=== PATIENT | male | born 1990 | race Caucasian/White ===

== ENCOUNTER 2016-10-03 20:42 | Emergency (ER) ==
[2016-10-03 20:49] VITALS: BP 154/93; TEMP 97.2; BMI 21.1
[2016-10-03] MEDS ORDERED: AUGMENTIN 500-125 MG TAB PO STA (21:27)
--- NOTE | 2016-10-03 21:28 | ED.PDOC ---
General ED Provider: Dr. CORETTA NESS Chief Complaint: Tooth Problem Stated Complaint: Right upper gum hurting and swollen, wisdom tooth. have f/u with Dr Armstrong Time Seen by Physician: 21:29 Mode of Arrival: Walk-In Information Source: Patient Primary Care Provider: CORETTA NESS[facility] Nursing and Triage Documentation Reviewed and Agree: Yes EENT Complaint Exam - Dental/Oral Complaint/Exam Mechanism of Injury: No known trauma Symptoms Are: Still present Timing: Constant Initial Severity: Moderate Current Severity: Moderate Character: Reports: Aching, Throbbing Aggravating: Reports: Chewing Alleviating: Reports: None Associated Signs and Symptoms: Reports: Swelling. Denies: Discharge, Fever, Foul odor, Foul taste in mouth Cardiac Risk Factors: Reports: None Dental/Oral Surgical History: Reports: None Tooth Findings: Present: Percussion tenderness, Cellulitis Cervical Lymphadenopathy Present: No Facial Swelling Present: No Bleeding Present: No Septal Hematoma: No Foreign Body Present: No Dysphagia Present: No Drooling Present: No Asymmetrical Tonsillar Swelling Present: No Uvula Midline: No Elke-tonsillar Fluctuence: No Trismus Present: No Palatal Petechiae Present: No Scarlatinaform Rash Present: No Differential Diagnoses: Gingivitis Review of Systems - Review Of Systems Constitutional: Reports: No symptoms Eyes: Reports: No symptoms Ears, Nose, Mouth, Throat: Reports: Mouth pain Respiratory: Reports: No symptoms Cardiac: Reports: No symptoms GI: Reports: No symptoms : Reports: No symptoms Musculoskeletal: Reports: No symptoms Skin: Reports: No symptoms Neurological: Reports: No symptoms Endocrine: Reports: No symptoms Hematologic/Lymphatic: Reports: No symptoms All Other Systems: Reviewed and Negative Past Medical History - Past Medical History Previously Healthy: Yes Endocrine: Reports: None Cardiovascular: Reports: None Respiratory: Reports: None Hematological: Reports: None Gastrointestinal: Reports: PUD (thewy said it would go away) Genitourinary: Reports: None Neuro/Psych: Reports: None Musculoskeletal: Reports: None Cancer: Reports: None - Surgical History General Surgical History: Reports: None - Family History Family History: Reports: Unknown - Social History Smoking Status: Current every day smoker, Light tobacco smoker Smoking Cessation Counseling Time: > 3 min - 10 min Hx Substance Use: No Alcohol Screening: None - Immunizations Tetanus Shot up to Date: No Physical Exam - Physical Exam Appearance: Well-appearing Pain Distress: Moderate Eyes: GARRET, EOMI, Conjunctiva clear ENT: Ears normal, Nose normal, Oropharynx normal Respiratory: Airway patent, Breath sounds clear, Breath sounds equal, Respirations nonlabored Cardiovascular: RRR, Pulses normal, No rub, No murmur GI/: Soft, Nontender, No masses, Bowel sounds normal, No Organomegaly Musculoskeletal: Normal strength, ROM intact, No edema, No calf tenderness Skin: Warm, Dry, Normal color Neurological: Sensation intact, Motor intact, Reflexes intact, Cranial nerves intact, Alert, Oriented Psychiatric: Affect appropriate, Mood appropriate Critical Care Note - Critical Care Note Total Time (mins): 0 Course - Course Orders, Labs, Meds: Orders Category Date Time Status Amoxicillin/Potassium Clav [Augmentin 500-125 mg Tab] MEDS 10/03/16 21:27 Stat 1 tab PO ONCE STA Vital Signs: Temp Pulse Resp BP Pulse Ox 10/03/16 20:42 97.2 F L 62 18 154/93 H 98 Departure - Departure Time of Disposition: 21:33 Disposition: HOME SELF-CARE Discharge Problem: Gingivitis Instructions: Toothache (ED) Condition: Stable Pt referred to PMD for follow-up: Yes Additional Instructions: HAS F/U WITH dENTIST IN am Prescriptions: Amoxicillin/Potassium Clav [Augmentin 500-125 mg Tab] 1 tab PO Q12HR #20 tablet Hydrocodone/Acetaminophen [[place] 5-325 Tablet] 1 tab PO TID PRN #12 tablet PRN Reason: PAIN Allergies/Adverse Reactions: Allergies tramadol HCl [From Ultram] Adverse Reaction (Verified 10/03/16 20:47) HEART RACES, NAUSEA venom-honey bee [bee venom (honey bee)] Adverse Reaction (Verified 10/03/16 20: 47) Home Medications: Ambulatory Orders Amoxicillin/Potassium Clav [Augmentin 500-125 mg Tab] 1 tab PO Q12HR #20 tablet 10/03/16 Hydrocodone/Acetaminophen [[place] 5-325 Tablet] 1 tab PO TID PRN #12 tablet 10/03 Disposition Discussed With: Patient
== END 2016-10-03 21:35 | disposition home or self-care (01) ==
LOC: ED 20:42
DX: K05.10 Chronic gingivitis, plaque induced (principal); K08.89 Other specified disorders of teeth and supporting structures; F17.210 Nicotine dependence, cigarettes, uncomplicated
CPT/HCPCS: 99282

== ENCOUNTER 2016-12-29 17:54 | Emergency (ER) ==
[2016-12-29 18:03] VITALS: BP 145/87; TEMP 99.1; BMI 21.5
--- NOTE | 2016-12-29 18:20 | ED.PDOC ---
General ED Provider: Dr. DESTINY WHITE JR Chief Complaint: Tooth Problem Stated Complaint: RDpatient has appointment with dr. baxter to have tooth pulled. states it broke off 2 weeks ago[End]2 WEEKS 99.1 70 16 97% 145/87 9/10 LEFT LOWER THIRD MOLAR TENDER FACIAL TENDERNESS NO FEVER Time Seen by Physician: 18:20 Mode of Arrival: Walk-In Information Source: Patient Exam Limitations: No limitations [facility] and Triage Documentation Reviewed and Agree: No EENT Complaint Exam - Dental/Oral Complaint/Exam Mechanism of Injury: No known trauma Onset/Duration: 2WEEKS Symptoms Are: Still present Timing: Intermittent Initial Severity: Moderate Current Severity: Moderate Character: Reports: Aching, Throbbing Aggravating: Reports: Heat, Cold, Chewing, Exertion Alleviating: Reports: OTC Meds (salt water,tylenol,ibuprofen) Associated Signs and Symptoms: Reports: Swelling Related History: Reports: Similar episode, Previous tooth problem Tooth Findings: Present: Percussion tenderness (LEFT THIRD MOLARWITH VIDIBLE CAVITY TENDER FACE OVER UPPER AND LOWER MOLARS NO ERYTHEMA) Review of Systems - Review Of Systems Constitutional: Reports: Malaise Eyes: Reports: No symptoms Ears, Nose, Mouth, Throat: Reports: Mouth pain Respiratory: Reports: No symptoms Cardiac: Reports: No symptoms GI: Reports: No symptoms : Reports: No symptoms Musculoskeletal: Reports: No symptoms Skin: Reports: No symptoms Neurological: Reports: No symptoms Endocrine: Reports: No symptoms Hematologic/Lymphatic: Reports: No symptoms All Other Systems: Other Past Medical History - Past Medical History Previously Healthy: Yes Endocrine: Reports: None Cardiovascular: Reports: None Respiratory: Reports: None Hematological: Reports: None Gastrointestinal: Reports: PUD (thewy said it would go away) Genitourinary: Reports: None Neuro/Psych: Reports: None Musculoskeletal: Reports: None Cancer: Reports: None - Surgical History General Surgical History: Reports: None - Family History Family History: Reports: Unknown - Social History Smoking Status: Current every day smoker, Light tobacco smoker Hx Substance Use: No Alcohol Screening: None Physical Exam - Physical Exam Appearance: Well-appearing, Thin Pain Distress: Moderate Eyes: GARRET, EOMI, Conjunctiva clear ENT: Ears normal, Nose normal, TMs Occluded Neck: Supple Respiratory: Airway patent, Breath sounds clear, Breath sounds equal, Respirations nonlabored Cardiovascular: RRR, Pulses normal, No rub, No murmur GI/: Soft, Nontender, No masses, Bowel sounds normal, No Organomegaly Musculoskeletal: Normal strength, ROM intact, No edema, No calf tenderness Skin: Warm, Dry, Normal color Neurological: Sensation intact, Motor intact, Reflexes intact, Cranial nerves intact, Alert, Oriented Critical Care Note - Critical Care Note Total Time (mins): 0 Course - Course Vital Signs: Temp Pulse Resp BP Pulse Ox 12/29/16 17:54 99.1 F 70 16 145/87 H 97 Departure - Departure Time of Disposition: 18:26 Disposition: HOME SELF-CARE Discharge Problem: Toothache Instructions: Dental Caries (ED), Dental Abscess (ED) Condition: Good Pt referred to PMD for follow-up: Yes (DENTIST) Additional Instructions: FOLLOW UP WITH DENTIST SOON POSSIBLE BRUSH AND FLOSS TEETH TWICE A DAY ANTIBIOTIC UNTIL GONE Prescriptions: Hydrocodone Bit/Acetaminophen [[place] 5-325] 1 - 2 tab PO Q6HR PRN #12 tablet PRN Reason: pain Naproxen [Naprosyn] 500 mg PO Q12HR PRN #30 tablet PRN Reason: PAIN Penicillin V Potassium 500 mg PO QID #28 tablet Allergies/Adverse Reactions: Allergies tramadol HCl [From [facility]] Adverse Reaction (Verified 12/29/16 17:56) HEART RACES, NAUSEA venom-honey bee [bee venom (honey bee)] Adverse Reaction (Verified 12/29/16 17: 56) Home Medications: Ambulatory Orders Hydrocodone Bit/Acetaminophen [[place] 5-325] 1 - 2 tab PO Q6HR PRN #12 tablet Naproxen [Naprosyn] 500 mg PO Q12HR PRN #30 tablet 12/29/16 Penicillin V Potassium 500 mg PO QID #28 tablet 12/29/16
== END 2016-12-29 18:34 | disposition home or self-care (01) ==
LOC: ED 17:54
DX: K08.89 Other specified disorders of teeth and supporting structures (principal); F17.210 Nicotine dependence, cigarettes, uncomplicated
CPT/HCPCS: 99282

== ENCOUNTER 2022-02-23 20:42 | Observation (INO) ==
--- NOTE | 2022-02-23 20:49 | ED.PDOC ---
General ED Provider: Dr. DESTINY BROWN MD Chief Complaint: Kidney Stone Stated Complaint: Patient presents with severe left flank pain that had acute onset 12 hours ago. The pain is colicky and does not radiate. Patient denies fever, chills, emesis, abdominal pain, hematuria. He has had some nausea. Audie schroeder does have a history of prior kidney stones on multiple occasions. Time Seen by Provider: 02/23/22 20:43 Exam Limitations: No limitations Nursing and Triage Documentation Reviewed and Agree: Yes Does patient meet sepsis criteria?: No System Inflammatory Response Syndrome: Not Applicable Sepsis Protocol: For patient's 13 years and over: Temp is 96.8 and below OR 101 and greater Pulse >90 BPM Resp >20/minute Acutely Altered Mental Status Are patient's symptoms suggestive of a new infection, such as: -Pneumonia -Skin, Soft Tissue -Endocarditis -UTI -Bone, Joint Infection -Implantable Device -Acute Abdominal Infection -Wound Infection -Meningitis -Blood Stream Catheter Infection -Unknown GI Complaint Exam Abdominal Pain Complaint/Exam Onset: Sudden Duration: 12 hours Symptoms Are: Worse Timing: Constant Initial Severity: Mild Current Severity: Severe Location of Pain: LUQ (left flank pain) Character: Reports Colicky Aggravating: Reports None Alleviating: Reports None Associated Signs and Symptoms: Reports Nausea Related History: Reports Similar episode (history of kidney stones 6-7 prior occasions) Cardiac Risk Factors: Reports None Testicular Torsion Risk Factors: Reports None Surgical Obstruction Risk Factors: Reports None Related Surgical History: Reports None Abdominal Findings: Present CVA Tenderness (moderate left CVA tenderness) Genitalia Exam: Present Normal findings Review of Systems Review Of Systems Constitutional: Reports No symptoms Eyes: Reports No symptoms Ears, Nose, Mouth, Throat: Reports No symptoms Respiratory: Reports No symptoms Cardiac: Reports No symptoms GI: Reports Abdominal pain (left flank pain) and Nausea : Reports Flank pain Musculoskeletal: Reports No symptoms Skin: Reports No symptoms Neurological: Reports No symptoms Endocrine: Reports No symptoms Hematologic/Lymphatic: Reports No symptoms All Other Systems: Reviewed and Negative [facility] Family History Grandfather/Grandmother Cardiac disease Cerebrovascular accident Social History Smoking and tobacco status: Current every day smoker Physical Exam Physical Exam Appearance: Reports Ill-appearing, Well-nourished and Thin Ill-appearing: Moderate Pain Distress: Moderate Eyes: Reports GARRET, EOMI and Conjunctiva clear ENT: Reports Nose normal and Oropharynx normal Neck: Supple Respiratory: Reports Airway patent, Breath sounds clear and Breath sounds equal Cardiovascular: Reports RRR, No rub and No murmur GI/: Reports Soft, Nontender, No masses, Bowel sounds normal, No Organomegaly and Other (moderate left CVA tenderness) Musculoskeletal: Reports Normal strength, ROM intact and No edema Skin: Reports Warm, Dry and Normal color Neurological: Reports Sensation intact, Motor intact, Cranial nerves intact, Alert and Oriented Psychiatric: Reports Affect appropriate and Mood appropriate Interpretation Radiology Interpretation Radiology Interpretation By: Radiologist Exam Interpreted: CT Scan (nonobstructing right renal stone, no hydronephrosis left side) Re-Evaluation Re-Evaluation Vital Signs Stable: Yes Pain Level: Pain improved some though still severe. Re-Evaluation Time of Re-Evaluation: 21:51 Status: Improved Vital Signs Stable: Yes Pain Level: Pain much improved after toradol. Critical Care Note Critical Care Note Total Critical Care Time (mins): 0 Course Course Hematology/Chemistry: 02/23/22 21:04 02/23/22 21:04 Orders, Labs, Meds: Lab Review 02/23/22 02/23/22 02/23/22 21:00 21:04 21:04 WBC 22.83 H RBC 5.00 Hgb 14.2 Hct 43.7 MCV 87.4 MCH 28.4 MCHC 32.5 RDW Coeff of [place] 13.0 Plt Count 325 Immature Gran % (Auto) 0.5 Neut % (Auto) 85.7 H Lymph % (Auto) 7.7 L [place] % (Auto) 5.3 Eos % (Auto) 0.5 Baso % (Auto) 0.3 Neut # (Auto) 19.6 H Lymph # (Auto) 1.8 [place] # (Auto) 1.2 Eos # (Auto) 0.1 Baso # (Auto) 0.1 Immature Gran # (Auto) 0.1 Sodium 137.2 Potassium 4.16 Chloride 104.3 Carbon Dioxide 25.6 Anion Gap 11.46 BUN 15.3 Creatinine 1.50 H Estimated GFR (MDRD) 54.00 BUN/Creatinine Ratio 10.20 Glucose 106.9 H Calcium 8.97 Total Bilirubin 0.47 AST 24.2 ALT 14.5 Alkaline Phosphatase 80.9 Total Protein 7.01 Albumin 4.06 Globulin 2.95 Albumin/Globulin Ratio 1.37 Urine Color Yellow Urine Clarity Clear Urine pH 6.5 Ur Specific [place] 1.025 Urine Protein Negative Urine Glucose (UA) Negative Urine Ketones Negative Urine Blood Trace-intact H Urine Nitrite Negative Urine Bilirubin Negative Urine Urobilinogen 1.0 H Ur Leukocyte Esterase 1+ H Urine Microscopic RBC 5-10 Urine Microscopic WBC 20-30 Ur Squamous Epith Cells 0-2 Urine Bacteria 2+ Urine Mucus 3+ Orders Category Date Time Status NPO REMINDER: IMAGING ONCE CARE 02/23/22 20:56 Active Saline Lock [ED IV/MEDIPORT/POWERPORT] .ONCE EMERGENCY 02/23/22 20:53 Active BLOOD CULTURE (ED ONLY) Stat LAB 02/23/22 Ordered CBC W/ AUTO DIFF Stat LAB 02/23/22 21:04 Completed CMP [COMPREHENSIVE METABOLIC PANEL] Stat LAB 02/23/22 21:04 Completed LACTIC ACID Stat LAB 02/23/22 21:47 Ordered URINALYSIS C & S IF INDICATED Stat LAB 02/23/22 21:00 Completed URINE CULTURE Stat LAB 02/23/22 21:00 Received Ceftriaxone/D5w 2 gm Premix [Rocephin 2 gm/50 ml D5w] MEDS 02/23/22 21:47 Active 2 gm in 50 ml IV ONCE Hydromorphone HCl [Dilaudid 1 mg/ml Syringe] MEDS 02/23/22 21:09 Discontinued 1 mg .ROUTE .STK-MED ONE Hydromorphone HCl/Pf [Dilaudid 0.2 mg/ml Syringe] MEDS 02/23/22 20:55 Discontinued 1 mg IVP ONCE STA Ketorolac Tromethamine [Toradol] MEDS 02/23/22 21:26 Discontinued 30 mg IVP ONCE STA Ondansetron HCl/Pf [Zofran 4 mg/2 ml] MEDS 02/23/22 20:54 Discontinued 4 mg IVP ONCE STA Sodium Chloride 0.9% [Sodium Chloride] 1,000 ml MEDS 02/23/22 20:[address] ABD/PEL WO RENAL STONE PROT Stat RADS 02/23/22 20:55 Completed Medications Generic Name Dose Route Start Last Admin Trade Name Freq PRN Reason Stop Dose Admin Sodium Chloride 1,000 mls @ 1,000 mls/hr 05/25/22 20:53 02/23/22 21:18 Sodium Chloride IV 02/23/22 21:52 1,000 mls/hr BOLUS STA Administration CEFTRIAXONE/D5W 2 GM PREMIX 2 gm in 50 mls @ 75 mls/hr 02/23/22 21:47 Rocephin 2 Gm/50 Ml D5w IV 02/23/22 22:26 ONCE ONE Discontinued Medications Generic Name Dose Route Start Last Admin Trade Name Yoon PRN Reason Stop Dose Admin Hydromorphone HCl 1 mg 02/23/22 20:55 02/23/22 21:17 Hydromorphone 0.2 Mg/Ml Syringe IVP 02/23/22 20:56 Not Given ONCE STA Ketorolac Tromethamine 30 mg 02/23/22 21:26 02/23/22 21:31 Ketorolac Tromethamine 30 Mg/Ml Vial IVP 02/23/22 21:27 30 mg ONCE STA Administration Ondansetron HCl 4 mg 02/23/22 20:54 02/23/22 21:16 Ondansetron Hcl/Pf 4 Mg/2 Ml Sdv IVP 02/23/22 20:55 4 mg ONCE STA Administration Vital Signs: Temp Pulse Resp BP Pulse Ox 02/23/22 20:43 98.2 F 89 20 114/78 97 Discharge Plan Discharge Patient Disposition: ADMITTED INPATIENT Discharge Problem: Acute pyelonephritis Prescriptions: No Action No Reported Medications 0 Qty: 0 0RF ED Provider: DESTINY BROWN Condition: Stable Physician Progress Note: []
[2022-02-23] MEDS ORDERED: SODIUM CHLORIDE 1,000 ML IV STA (20:53)
[2022-02-23] MEDS ORDERED: ZOFRAN 4 MG/2 ML IVP STA (20:54)
[2022-02-23] MEDS ORDERED: HYDROMORPHONE 0.2 MG/ML IVP STA (20:55)
[2022-02-23 21:09] LABS: BILIRUBIN,URINE Negative (NEGATIVE); CLARITY,URINE Clear (CLEAR); COLOR,URINE Yellow (YELLOW); GLUCOSE, URINE (UA) Negative (NEGATIVE); KETONES,URINE Negative (NEGATIVE); LEUKOCYTE ESTERASE ,URINE 1+ (NEGATIVE); NITRITE,URINE Negative (NEGATIVE); PH,URINE 6.5 (5-9); PROTEIN,URINE Negative (NEGATIVE); URINE, BLOOD Trace-intact (NEGATIVE)
[2022-02-23] MEDS ORDERED: DILAUDID 1 MG/ML SYRINGE ONE (21:09)
[2022-02-23 21:11] LABS: BASOPHILS # (AUTO) 0.1 K/uL (0-0.2); BASOPHILS % (AUTO) 0.3 % (0.0-3.0); EOSINOPHILS # (AUTO) 0.1 K/ul (0.0-0.7); EOSINOPHILS % (AUTO) 0.5 % (0.0-7.0); HEMATOCRIT 43.7 % (42.0-52.0); HEMOGLOBIN 14.2 g/dl (14.0-18.0); IMMATURE GRANULOCYTE # (AUTO) 0.1 (0.0-1.0); IMMATURE GRANULOCYTE % (AUTO) 0.5 % (0.0-5.0); LYMPHOCYTES # (AUTO) 1.8 K/uL (0.60-3.4); LYMPHOCYTES % (AUTO) 7.7 (10.0-50.0); MEAN CORPUSCULAR HEMOGLOBIN 28.4 pg (27.0-31.0); MEAN CORPUSCULAR HGB CONC 32.5 (31.8-35.4); MEAN CORPUSCULAR VOLUME 87.4 fl (80.0-94.0); MONOCYTES # (AUTO) 1.2 K/uL (0.4-2.0); MONOCYTES % (AUTO) 5.3 (0-10); NEUTROPHILS # (AUTO) 19.6 K/ul (2.0-6.9); NEUTROPHILS % (AUTO) 85.7 % (42.2-75.2); PLATELET COUNT 325 10^3/uL (140-440); WHITE BLOOD COUNT 22.83 K/ul (4.2-10.2)
[2022-02-23 21:13] LABS: BACTERIA,URINE 2+ (NOT PRESENT); MUCUS,URINE 3+ (NOT PRESENT); SQUAMOUS EPITHELIAL CELL,UR 0-2 (0-5); URINE WBC, MICROSCOPIC 20-30 (0-2)
[2022-02-23 21:22] LABS: ALANINE AMINOTRANSFERASE 14.5 U/L (0-50); ALBUMIN 4.06 g/dL (3.5-5.0); ALKALINE PHOSPHATASE 80.9 U/L (38-126); ASPARTATE AMINO TRANSFERASE 24.2 U/L (17-59); BILIRUBIN,TOTAL 0.47 mg/dL (0.2-1.3); BLOOD UREA NITROGEN 15.3 mg/dL (9-20); CALCIUM 8.97 mg/dL (8.4-10.2); CARBON DIOXIDE 25.6 mmol/L (22-30.0); CHLORIDE 104.3 mmol/L (98-107); CREATININE 1.5 mg/dL (0.60-1.10); GLUCOSE 106.9 mg/dL (74-106); POTASSIUM 4.16 mmol/L (3.5-5.1); SODIUM 137.2 mmol/L (134.5-145); TOTAL PROTEIN 7.01 g/dL (6.3-8.2)
[2022-02-23] MEDS ORDERED: TORADOL IVP STA (21:26)
--- NOTE | 2022-02-23 21:45 | CT ---
EXAM: CT abdomen pelvis without contrast HISTORY: Left flank pain COMPARISON: None TECHNIQUE: Serial axial images of the abdomen pelvis were performed from the lung bases through the inferior pelvis without contrast. These were viewed in multiple planes. FINDINGS: Lung bases are clear. Evaluation is limited due to lack of contrast. The spleen is unremarkable. Gallbladder is minimally distended. Adrenal glands are normal. There is a nonobstructing right renal stone. There is a non obstructing left renal calcification layering within a cyst. Spleen is unremarkable. The pancreas i s normal. The stomach is large and distended with debris. Small bowel in the abdomen pelvis is unremarkable. The colon is unremarkable with scattered stool throughout the colon. There is no free air, free fluid or lymphadenopathy. Prostate is normal. Urinary bladder is minimally distended. The osseous struc tures are unremarkable. IMPRESSION: 1. No acute intra-abdominal or pelvic process to account for patient left flank pain. 2. Bilateral benign renal calculi. All CT scans are performed using dose optimization techniques as appropriate to the performed exam an d include at least one of the following: Automated exposure control, adjustment of the mA and/or kV according t o size, and the use of iterative reconstruction technique.
[2022-02-23] MEDS ORDERED: ROCEPHIN 2 GM/50 ML D5W 2 GM/50 ML BAG IV ONE (21:47)
[2022-02-23] MEDS: SODIUM CHLORIDE 1,000 ML IV SCH (22:41)
[2022-02-23] MEDS: DILAUDID 1 MG/ML SYRINGE IVP PRN (23:22)
[2022-02-24 05:03] LABS: BASOPHILS # (AUTO) 0.1 K/uL (0-0.2); BASOPHILS % (AUTO) 0.2 % (0.0-3.0); EOSINOPHILS # (AUTO) 0.1 K/ul (0.0-0.7); EOSINOPHILS % (AUTO) 0.4 % (0.0-7.0); HEMATOCRIT 41.4 % (42.0-52.0); HEMOGLOBIN 13.2 g/dl (14.0-18.0); IMMATURE GRANULOCYTE # (AUTO) 0.1 (0.0-1.0); IMMATURE GRANULOCYTE % (AUTO) 0.6 % (0.0-5.0); LYMPHOCYTES # (AUTO) 1.1 K/uL (0.60-3.4); LYMPHOCYTES % (AUTO) 4.7 (10.0-50.0); MEAN CORPUSCULAR HEMOGLOBIN 28.2 pg (27.0-31.0); MEAN CORPUSCULAR HGB CONC 31.9 (31.8-35.4); MEAN CORPUSCULAR VOLUME 88.5 fl (80.0-94.0); MONOCYTES # (AUTO) 1.1 K/uL (0.4-2.0); MONOCYTES % (AUTO) 4.4 (0-10); NEUTROPHILS # (AUTO) 21.3 K/ul (2.0-6.9); NEUTROPHILS % (AUTO) 89.7 % (42.2-75.2); PLATELET COUNT 283 10^3/uL (140-440); RED BLOOD COUNT 4.68 10^6/ul (4.70-6.10); WHITE BLOOD COUNT 23.79 K/ul (4.2-10.2)
[2022-02-24] MEDS: SODIUM CHLORIDE 1,000 ML IV SCH ×3 (05:37→19:12)
[2022-02-24 05:39] LABS: ALANINE AMINOTRANSFERASE 15.7 U/L (0-50); ALBUMIN 3.65 g/dL (3.5-5.0); ASPARTATE AMINO TRANSFERASE 22.8 U/L (17-59); BILIRUBIN,TOTAL 0.48 mg/dL (0.2-1.3); BLOOD UREA NITROGEN 14.6 mg/dL (9-20); CALCIUM 8.04 mg/dL (8.4-10.2); CARBON DIOXIDE 24.3 mmol/L (22-30.0); CHLORIDE 105.2 mmol/L (98-107); CREATININE 1.13 mg/dL (0.60-1.10); GLUCOSE 142.9 mg/dL (74-106); POTASSIUM 3.64 mmol/L (3.5-5.1); SODIUM 137.7 mmol/L (134.5-145); TOTAL PROTEIN 6.36 g/dL (6.3-8.2)
[2022-02-24] MEDS: DILAUDID 1 MG/ML SYRINGE IVP PRN ×3 (08:46→19:12)
[2022-02-24] MEDS: ROCEPHIN 1 GM/50 ML D5W 1 GM/50 ML BAG IV SCH (09:28)
--- NOTE | 2022-02-24 10:25 | PCM.PROG ---
Date Seen by Provider: 02/24/22 Time Seen by Provider: 10:22 Subjective: left flank pain improving Objective: Vitals: T=96.6 F, P=79, R=14, JU=444/63, SPO2=98 HEENT: []conjunctiva clear Neck: []supple Lungs: [] no respiratory distress CVS: [] Abdomen: []nondistended Extremities: []jeanine Neurological: []alert and oriented Skin: []pink Lab/Tests/Diagnostic Imaging: [] u/a +cathryn and wbc, plasma wbc 23 (1) Acute pyelonephritis: Status: Acute Code(s): N10 - Acute pyelonephritis SNOMED Code(s): 20371566 Plan: continue iv rocephin care to Dr Bragg at 19:00
[2022-02-24] MEDS ORDERED: NICODERM 21 MG TD SCH (19:30)
[2022-02-25] MEDS: SODIUM CHLORIDE 1,000 ML IV SCH ×3 (02:00→16:49)
[2022-02-25] MEDS: DILAUDID 1 MG/ML SYRINGE IVP PRN ×2 (02:02→08:47)
[2022-02-25 05:59] LABS: BASOPHILS # (AUTO) 0.1 K/uL (0-0.2); BASOPHILS % (AUTO) 0.4 % (0.0-3.0); EOSINOPHILS # (AUTO) 0.3 K/ul (0.0-0.7); EOSINOPHILS % (AUTO) 1.9 % (0.0-7.0); HEMATOCRIT 40.3 % (42.0-52.0); HEMOGLOBIN 13.2 g/dl (14.0-18.0); IMMATURE GRANULOCYTE # (AUTO) 0.1 (0.0-1.0); IMMATURE GRANULOCYTE % (AUTO) 0.3 % (0.0-5.0); LYMPHOCYTES # (AUTO) 2.9 K/uL (0.60-3.4); LYMPHOCYTES % (AUTO) 17.7 (10.0-50.0); MEAN CORPUSCULAR HEMOGLOBIN 28.9 pg (27.0-31.0); MEAN CORPUSCULAR HGB CONC 32.8 (31.8-35.4); MEAN CORPUSCULAR VOLUME 88.2 fl (80.0-94.0); MONOCYTES % (AUTO) 6.2 (0-10); NEUTROPHILS # (AUTO) 12.1 K/ul (2.0-6.9); NEUTROPHILS % (AUTO) 73.5 % (42.2-75.2); PLATELET COUNT 286 10^3/uL (140-440); RDW COEFFICIENT OF VARIATION 12.9 % (11.6-14.8); RED BLOOD COUNT 4.57 10^6/ul (4.70-6.10); WHITE BLOOD COUNT 16.52 K/ul (4.2-10.2)
[2022-02-25 06:11] LABS: ALANINE AMINOTRANSFERASE 35.4 U/L (0-50); ALBUMIN 3.57 g/dL (3.5-5.0); BILIRUBIN,TOTAL 0.39 mg/dL (0.2-1.3); BLOOD UREA NITROGEN 7.9 mg/dL (9-20); CALCIUM 8.1 mg/dL (8.4-10.2); CARBON DIOXIDE 25.3 mmol/L (22-30.0); CHLORIDE 105.9 mmol/L (98-107); CREATININE 0.79 mg/dL (0.60-1.10); GLUCOSE 101.2 mg/dL (74-106); POTASSIUM 4.18 mmol/L (3.5-5.1); TOTAL PROTEIN 6.47 g/dL (6.3-8.2)
[2022-02-25] MEDS: ROCEPHIN 1 GM/50 ML D5W 1 GM/50 ML BAG IV SCH (09:13)
--- NOTE | 2022-02-25 09:24 | PCM.PROG ---
Date Seen by Provider: 02/25/22 Time Seen by Provider: : Subjective: improving pain control for left pyelonephritis Objective: Vitals: T=97.8 F, P=50, R=18, UD=177/73, ZMW5=666 HEENT: []conjunctiva clear Neck: []supple Lungs: [] no respiratory distress CVS: [] Abdomen: []nondistended Extremities: []jeanine Neurological: []alert and oriented Skin: []pink Lab/Tests/Diagnostic Imaging: [] wbc 16.5 (1) Acute pyelonephritis: Status: Acute Code(s): N10 - Acute pyelonephritis SNOMED Code(s): 40989476 Plan: continue Rocephin and pain control with dilaudid, await urine sensitivity culture care to Dr Valerio at 19:00
[2022-02-25] MEDS ORDERED: DILAUDID 1 MG/ML SYRINGE IVP PRN (09:33)
[2022-02-25] MEDS: NICODERM 21 MG TD SCH (09:39)
[2022-02-25] MEDS: TYLENOL PO PRN ×2 (13:38→20:49)
[2022-02-25] MEDS: DILAUDID 0.5 MG/0.5 ML SYRINGE IVP PRN (16:12)
[2022-02-25] MEDS ORDERED: NICODERM 21 MG TD SCH (21:00)
[2022-02-26] MEDS: SODIUM CHLORIDE 1,000 ML IV SCH ×3 (01:59→11:18)
[2022-02-26] MEDS: DILAUDID 0.5 MG/0.5 ML SYRINGE IVP PRN ×2 (02:00→08:53)
[2022-02-26 05:34] LABS: BASOPHILS # (AUTO) 0.1 K/uL (0-0.2); BASOPHILS % (AUTO) 0.7 % (0.0-3.0); EOSINOPHILS # (AUTO) 0.5 K/ul (0.0-0.7); EOSINOPHILS % (AUTO) 3.7 % (0.0-7.0); HEMATOCRIT 47.8 % (42.0-52.0); HEMOGLOBIN 15.2 g/dl (14.0-18.0); IMMATURE GRANULOCYTE % (AUTO) 0.3 % (0.0-5.0); LYMPHOCYTES # (AUTO) 2.6 K/uL (0.60-3.4); LYMPHOCYTES % (AUTO) 20.9 (10.0-50.0); MEAN CORPUSCULAR HEMOGLOBIN 27.9 pg (27.0-31.0); MEAN CORPUSCULAR HGB CONC 31.8 (31.8-35.4); MEAN CORPUSCULAR VOLUME 87.9 fl (80.0-94.0); MONOCYTES # (AUTO) 0.8 K/uL (0.4-2.0); MONOCYTES % (AUTO) 6.6 (0-10); NEUTROPHILS # (AUTO) 8.4 K/ul (2.0-6.9); NEUTROPHILS % (AUTO) 67.8 % (42.2-75.2); PLATELET COUNT 330 10^3/uL (140-440); RDW COEFFICIENT OF VARIATION 12.8 % (11.6-14.8); RED BLOOD COUNT 5.44 10^6/ul (4.70-6.10); WHITE BLOOD COUNT 12.32 K/ul (4.2-10.2)
[2022-02-26 05:43] LABS: ALANINE AMINOTRANSFERASE 47.4 U/L (0-50); ALBUMIN 4.16 g/dL (3.5-5.0); ALKALINE PHOSPHATASE 89.6 U/L (38-126); ASPARTATE AMINO TRANSFERASE 38.5 U/L (17-59); BILIRUBIN,TOTAL 0.27 mg/dL (0.2-1.3); BLOOD UREA NITROGEN 7.4 mg/dL (9-20); CALCIUM 8.86 mg/dL (8.4-10.2); CARBON DIOXIDE 28.7 mmol/L (22-30.0); CHLORIDE 106.9 mmol/L (98-107); CREATININE 0.65 mg/dL (0.60-1.10); POTASSIUM 4.37 mmol/L (3.5-5.1); SODIUM 139.8 mmol/L (134.5-145); TOTAL PROTEIN 7.45 g/dL (6.3-8.2)
[2022-02-26] MEDS: ROCEPHIN 1 GM/50 ML D5W 1 GM/50 ML BAG IV SCH (08:53)
[2022-02-26] MEDS: NICODERM 21 MG TD SCH (08:57)
[2022-02-26 09:45] VITALS: TEMP 97.5
--- NOTE | 2022-02-26 11:00 | PCM.PROG ---
Date Seen by Provider: 02/26/22 Time Seen by Provider: 10:58 Subjective: pt improving Objective: Vitals: T=97.5 F, P=64, R=14, LQ=661/76, SPO2=98 HEENT: []conjunctiva clear Neck: []supple Lungs: [] no respiratory distress CVS: [] Abdomen: []nondistended Extremities: []jeanine Neurological: []alert and oriented Skin: []pink Lab/Tests/Diagnostic Imaging: [] wbc 12 (1) Acute pyelonephritis: Status: Acute Code(s): N10 - Acute pyelonephritis SNOMED Code(s): 53212902 Plan: discontinue dilaudid, start oral 10mg toradol q6 prn, obtain follow up ct january d/c home tomorrow, decrease iv ns to 75cc/hr care to Dr Valerio at 19:00
[2022-02-26] MEDS ORDERED: SODIUM CHLORIDE 1,000 ML IV SCH (11:06)
--- NOTE | 2022-02-26 13:25 | CT ---
EXAM: CT abdomen and pelvis without contrast HISTORY: Left pyelonephritis COMPARISON: 02/23/2022 CT abdomen pelvis. TECHNIQUE: Axial CT imaging of the abdomen and pelvis was performed without IV contrast. Sagittal an d coronal re-formations were performed. FINDINGS: The lung bases are clear. The non contrast visualized portions of the liver, spleen, gallbladder, pancreas and adrenal glands a re within normal limits. There is no intrahepatic ductal dilatation. Scattered normal-sized mesenteric lymph nodes are present. No mesenteric or retroperitoneal lymphade nopathy is seen. The right and left kidney showed nonobstructing punctate renal calculi. A left cortical cyst is pres ent with layering calculi present. There is no hydronephrosis or perinephric fat stranding. The aorta is normal in course and caliber. No inflammatory changes in the pericecal region. Moderate amount of fecal material involving the asc ending colon. No pathologically dilated loops of large or small bowel are seen. There is no free ai r or fluid seen in the abdomen or pelvis. The urinary bladder is unremarkable. The prostate gland i s unremarkable. Age appropriate osseous findings. IMPRESSION: #1. Bilateral nonobstructing nephrolithiasis. No hydronephrosis or perinephric fat stranding. All CT scans are performed using dose optimization techniques as appropriate to the performed exam an d include at least one of the following: Automated exposure control, adjustment of the mA and/or kV according t o size, and the use of iterative reconstruction technique.
[2022-02-26 14:28] VITALS: BP 111/65
[2022-02-26] MEDS ORDERED: TORADOL PO PRN (16:02)
--- NOTE | 2022-02-26 16:34 | PCM.DC ---
Final Diagnosis: left pyelonephritis Physical Exam Appearance: Well-appearing Ill-appearing: None Pain Distress: None Eyes: Conjunctiva clear ENT: Oropharynx normal Neck: Supple Respiratory: Airway patent Cardiovascular: RRR GI/: Soft Musculoskeletal: ROM intact Skin: Warm and Dry Neurological: Alert and Oriented Psychiatric: Affect appropriate (1) Acute pyelonephritis: Status: Acute Code(s): N10 - Acute pyelonephritis SNOMED Code(s): 47913691 Reason for Hospitalization: pyelonephritis Prognosis/Condition at Discharge: uncertain as the pt left ama Medications at Discharge: Ambulatory Orders Medication Instructions Recorded 1 [No Reported Medications] 01/03/21 Lab/Diagnostics: wbc 12 Education Provided to Patient and Family: see your doctor Discharge Disposition: AMA Hospital Course: pt improved. +oral intake, pt switched from dilaudid to toradol today Plan: pt should see his doctor
== END 2022-02-26 16:30 | disposition left against medical advice (07) ==
LOC: ED 20:42 → MEDSURG A 20:42
PROVIDERS: ADMIT Surgery; ATTEND Emergency Medicine Emergency Medical Services
DX: Z20.822 Contact with and (suspected) exposure to COVID-19; Z51.81 Encounter for therapeutic drug level monitoring; N10 Acute pyelonephritis; Z79.899 Other long term (current) drug therapy; Z87.442 Personal history of urinary calculi